=== PATIENT | female | born 1990 | race African-American/Black ===

== ENCOUNTER 2017-06-28 03:05 | Emergency (ER) | payer MEDICAID, OTHER ==
[2017-06-28] MEDS ORDERED: Azithromycin 250 MG TAB ONE (03:26)
== END 2017-06-28 03:30 | disposition home or self-care (01) ==
LOC: NAV ERS 03:05
DX: H66.91 Otitis media, unspecified, right ear (principal); Z79.82 Long term (current) use of aspirin
CPT/HCPCS: 99282

== ENCOUNTER 2017-06-29 22:21 | Emergency (ER) | payer OTHER ==
[2017-06-29] MEDS ORDERED: Lidocaine 1% 20 ML MDV ONE (22:38)
[2017-06-29] MEDS ORDERED: cefTRIAXone\\ROCEPHIN 1 GM VIAL ONE (22:38)
[2017-06-29] MEDS ORDERED: HYDROcodone/Acetaminophen 10/325 mg Tablet ONE (22:52)
== END 2017-06-29 23:04 | disposition home or self-care (01) ==
LOC: NAV ERS 22:21
DX: H65.91 Unspecified nonsuppurative otitis media, right ear (principal); Z79.2 Long term (current) use of antibiotics
CPT/HCPCS: 96372; J0696; J2001

== ENCOUNTER 2022-12-31 13:52 | Emergency (ER) | payer OTHER, SELFPAY ==
[2022-12-31] MEDS ORDERED: methylPREDNISolone Acetate 40 mg/ml Vial ONE (14:31)
== END 2022-12-31 14:53 | disposition home or self-care (01) ==
LOC: NAV ERS 13:52
DX: T78.40XA Allergy, unspecified, initial encounter (principal); L29.9 Pruritus, unspecified
CPT/HCPCS: 96372; 99283; J1030

== ENCOUNTER 2024-10-01 12:00 | Emergency (ER) | payer SELFPAY ==
[2024-10-01] MEDS ORDERED: AMOXicillin 250 MG CAP ONE (12:50)
== END 2024-10-01 12:55 | disposition home or self-care (01) ==
LOC: NAV ERS 12:00
DX: J02.0 Streptococcal pharyngitis (principal)
CPT/HCPCS: 87428; 87430; 99283